=== PATIENT | female | born 1980 | race Caucasian/White ===

== ENCOUNTER 2022-09-09 16:45 | Emergency (ER) | payer BC ==
[~2022-09-09] VITALS: Ht 162.6 cm; Wt 83.9 kg
[2022-09-09 16:49] VITALS: BP_SYST 126
[2022-09-09] MEDS ORDERED: KETOROLAC TROMETHAMINE 60 MG/2 ML VIAL IM ONE (17:45)
[2022-09-09] MEDS ORDERED: DICL20GE TP (19:06)
[2022-09-09] MEDS ORDERED: IBUP-1971 PO (19:06)
[2022-09-09 19:15] VITALS: BP_SYST 121
== END 2022-09-09 19:16 | disposition home or self-care (01) ==
LOC: SED 16:45
DX: S46.911A Strain of unspecified muscle, fascia and tendon at shoulder and upper arm level, right arm, initial encounter (principal); Z79.899 Other long term (current) drug therapy; X58.XXXA Exposure to other specified factors, initial encounter; Y93.89 Activity, other specified; Y92.89 Other specified places as the place of occurrence of the external cause; Y99.8 Other external cause status
CPT/HCPCS: 99285; 93971; 73030; 96372; J1885

== ENCOUNTER 2022-11-06 10:57 | Emergency (ER) | payer BC ==
[~2022-11-06] VITALS: Ht 162.6 cm; Wt 63.5 kg
[~2022-11-06 10:57] MED LIST: DICL20GE TP; IBUP-1971 PO
[2022-11-06 11:30] VITALS: BP_SYST 103
[2022-11-06 12:18] LABS: BILIRUBIN,URINE NEGATIVE (NEGATIVE); BLOOD, URINE NEGATIVE (NEGATIVE); CLARITY/URINE CLEAR (CLEAR); COLOR,URINE YELLOW (YELLOW); GLUCOSE,URINE NEGATIVE (NEGATIVE); KETONES,URINE NEGATIVE (NEGATIVE); LEUKOCYTE ESTERASE ,URINE NEGATIVE (NEGATIVE); NITRITE, URINE NEGATIVE (NEGATIVE); PH,URINE 7.5 (5.0-8.0); PROTEIN URINE NEGATIVE (NEGATIVE); UROBILINOGEN,URINE 0.2 (0.2-1.0)
[2022-11-06 13:28] LABS: BASOPHILS % (AUTO) 0.4 % (0.0-2.0); EOSINOPHILS # (AUTO) 0.1 K/uL (0.0-0.4); EOSINOPHILS % (AUTO) 0.9 % (0.0-4.0); HEMATOCRIT 40.4 % (36-48); HEMOGLOBIN 13.6 g/dL (12.0-16.0); LYMPHOCYTES # (AUTO) 2.4 K/uL (1.0-5.5); LYMPHOCYTES % (AUTO) 28.5 % (20.5-51.5); MEAN CORPUSCULAR HEMOGLOBIN 29 pg (27-31); MEAN CORPUSCULAR HGB CONC 34 % (32-36); MEAN CORPUSCULAR VOLUME 86 fL (79.0-98.0); MONOCYTES # (AUTO) 0.4 K/uL (0.0-1.0); MONOCYTES % (AUTO) 4.6 % (1.7-9.3); NEUTROPHILS # (AUTO) 5.5 K/uL (1.8-7.7); NEUTROPHILS % (AUTO) 65.6 % (40.0-70.0); PLATELET COUNT (AUTO) 199 K/uL (130-430); RED BLOOD CELL COUNT(AUTO) 4.68 MIL/uL (4.2-6.2); RED CELL DISTRIBUTION WIDTH 13.7 % (9.0-15.0); WHITE BLOOD COUNT (AUTO) 8.3 K/uL (4.8-10.8)
[2022-11-06 13:59] LABS: ALBUMIN 3.6 g/dL (3.4-4.8); CALCIUM 8.5 mg/dL (8.4-11.0); CREATININE 0.79 mg/dL (0.55-1.30); TOTAL BILIRUBIN 0.3 mg/dL (0.0-1.0)
--- NOTE | 2022-11-06 18:30 | NUR ---
DR. BRAXTON PLACED PATIENT IN [facility]
--- NOTE | 2022-11-06 18:35 | NUR ---
Patient brought complaining of LLQ abdominal pain since last night . pain 3/10 with nausea
--- NOTE | 2022-11-06 18:38 | NUR ---
MEDICATED PER MD ORDERS
[2022-11-06] MEDS ORDERED: DICL75TA5 PO (18:39)
[2022-11-06] MEDS ORDERED: ONDA-8 TL (18:39)
[2022-11-06 18:43] VITALS: BP_SYST 112
--- NOTE | 2022-11-06 18:43 | NUR ---
Patient given written and verbal discharge instructions and verbalizes understanding. ER MD discussed with patient the results and treatment provided. Patient in stable condition. ID arm band removed. Rx of voltaren and zofran given. Patient educated on pain management and to follow up with PMD. Pain Scale 0/10 Opportunity for questions provided and answered. Medication side effect fact sheet provided.
[2022-11-06] MEDS ORDERED: ONDANSETRON 4 MG ODT TAB PO ONE (18:45)
[2022-11-06] MEDS ORDERED: KETOROLAC TROMETHAMINE 60 MG/2 ML VIAL IM ONE (18:45)
== END 2022-11-06 18:43 | disposition home or self-care (01) ==
LOC: SED 10:57
DX: R10.32 Left lower quadrant pain (principal); Z87.898 Personal history of other specified conditions; R11.0 Nausea; Z79.899 Other long term (current) drug therapy
CPT/HCPCS: 99285; 74176; 76856; 80053; 83690; 85025; 36415; 76376; 81025; 96372; 81003; Q0162; J1885

== ENCOUNTER 2022-11-13 12:20 | Emergency (ER) | payer BC ==
[~2022-11-13] VITALS: Ht 162.6 cm; Wt 83.9 kg
[~2022-11-13 12:20] MED LIST changes: +DICL75TA5 PO; +ONDA-8 TL
[2022-11-13 12:48] VITALS: BP_SYST 133
--- NOTE | 2022-11-13 12:54 | NUR ---
Placed in room 8 . 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 To gown for exam. Side rails up. Report given to
--- NOTE | 2022-11-13 13:00 | NUR ---
pt bib self, awake and alert aox4. no sob or distress, pt c/o pain to her neck x 3 months. pt denies trauma. PT STATES PAIN RADIATE TO LEFT ARM. PAIN /. PT DENIES N/V. PT HAS HX OF BACK SURGERY, CHRONS, AND HLD.
--- NOTE | 2022-11-13 13:05 | NUR ---
MD DR SHAIKH AT BEDSIDE
[2022-11-13] MEDS ORDERED: KETOROLAC TROMETHAMINE 60 MG/2 ML VIAL IM ONE (13:15)
[2022-11-13] MEDS ORDERED: DIAZEPAM 10 MG/2 ML DISP.SYRIN IM ONE (13:15)
[2022-11-13] MEDS ORDERED: DIAZEPAM 5 MG TABLET (VALIUM) PO ONE (13:30)
[2022-11-13] MEDS ORDERED: TRAM50TA2 PO (13:48)
[2022-11-13] MEDS ORDERED: HYDROcodone/ACETAMIN 10-325 MG TAB PO ONE (15:15)
[2022-11-13 15:53] VITALS: BP_SYST 135
--- NOTE | 2022-11-13 15:54 | NUR ---
Patient given written and verbal discharge instructions and verbalizes understanding. ER MD DR GARCES discussed with patient the results and treatment provided. Patient in stable condition. ID arm band removed. Rx of TRAMODOL given. Patient educated on pain management and to follow up with PMD. Pain Scale 4/10. Opportunity for questions provided and answered. Medication side effect fact sheet provided.
== END 2022-11-13 15:54 | disposition home or self-care (01) ==
LOC: SED 12:20
DX: M54.12 Radiculopathy, cervical region (principal); M25.511 Pain in right shoulder; M25.512 Pain in left shoulder; Z88.2 Allergy status to sulfonamides; Z91.040 Latex allergy status; Z79.899 Other long term (current) drug therapy
CPT/HCPCS: 99285; 72125; 76376; 96372; J1885

== ENCOUNTER 2022-11-15 18:08 | Emergency (ER) | payer BC ==
[~2022-11-15] VITALS: Ht 162.6 cm; Wt 83.9 kg
[~2022-11-15 18:08] MED LIST changes: +TRAM50TA2 PO
[2022-11-15 18:10] VITALS: BP_SYST 125
--- NOTE | 2022-11-15 18:16 | NUR ---
Patient triaged and placed in waiting room. VSS and patient appears in no acute distress at this time. Accompanied by SPOUSE, awaiting available bed, and MD notified of need for MSE.
[2022-11-15] MEDS ORDERED: KETOROLAC TROMETHAMINE 60 MG/2 ML VIAL IM ONE (20:00)
[2022-11-15 20:04] VITALS: BP_SYST 138
--- NOTE | 2022-11-15 20:05 | NUR ---
Patient given written and verbal discharge instructions and verbalizes understanding. ER MD discussed with patient the results and treatment provided. Patient in stable condition. ID arm band removed. Patient educated on pain management and to follow up with PMD. Pain Scale [0]. Opportunity for questions provided and answered. Medication side effect fact sheet provided.
== END 2022-11-15 20:04 | disposition home or self-care (01) ==
LOC: SED 18:08
DX: S83.91XA Sprain of unspecified site of right knee, initial encounter (principal); Z88.2 Allergy status to sulfonamides; Z91.040 Latex allergy status; Z79.899 Other long term (current) drug therapy; W18.30XA Fall on same level, unspecified, initial encounter; Y93.89 Activity, other specified; Y92.89 Other specified places as the place of occurrence of the external cause; Y99.8 Other external cause status
CPT/HCPCS: 99283; 29505; 73564; 96372; J1885